=== PATIENT | female | born 1980 | race Two or more races ===

== ENCOUNTER 2021-08-23 02:15 | Inpatient (IN) | payer OTHER ==
[~2021-08-23] VITALS: Ht 160 cm; Wt 88.9 kg
[2021-08-23 04:37] LABS: BILIRUBIN NEGATIVE (NEGATIVE); BLOOD TRACE-INTACT Ery/uL (NEGATIVE); CLARITY CLEAR (CLEAR); COLOR YELLOW (YELLOW); GLUCOSE (U) 1+ mg/dL (NORMAL); HCT 38.2 % (37.0-47.0); HGB 12.9 g/dl (12.5-16.0); LEUKOCYTES NEGATIVE Leu/uL (NEGATIVE); MCH 31.4 pg (25.0-31.0); MCHC 33.8 g/dL (32.0-36.0); MCV 92.9 fL (78.0-100.0); NITRITE NEGATIVE (NEGATIVE); PROTEIN NEGATIVE (NEGATIVE); RBC 4.11 M/uL (4.20-5.40); UROBILINOGEN 0.2 mg/dL (0.2-1.0); WBC 9.5 K/uL (4.0-10.5)
[2021-08-23 04:43] LABS: AMORPHOUS URATES CRYSTALS TRACE; URINARY RBC RARE
[2021-08-23 04:55] LABS: ALBUMIN 2.3 g/dL (3.4-5.0); BILIRUBIN - TOTAL 0.2 mg/dL (0.2-1.0); CREATININE 0.75 mg/dL (0.51-0.95); GLOBULIN (CALCULATION) 4.3 g/dL; TOTAL PROTEIN 6.6 g/dL (6.4-8.2)
[2021-08-24 06:30] LABS: HCT 35.5 % (37.0-47.0); HGB 12.1 g/dl (12.5-16.0); MCH 32.3 pg (25.0-31.0); MCHC 34.1 g/dL (32.0-36.0); MCV 94.7 fL (78.0-100.0); RBC 3.75 M/uL (4.20-5.40); RDW 16.3 % (11.5-14.0)
== END 2021-08-25 12:00 | disposition home or self-care (01) | DRG 788 ==
LOC: FOB 02:15 → FOD 02:15 → FOB 03:55
PROVIDERS: ADMIT Obstetrics & Gynecology
PROC: 10D00Z1 Extraction of Products of Conception, Low, Open Approach (ICD-10-PCS; principal; 2021-08-23 10:08)
DX: O42.02 Full-term premature rupture of membranes, onset of labor within 24 hours of rupture (principal); Z37.0 Single live birth; Z3A.38 38 weeks gestation of pregnancy; Z20.822 Contact with and (suspected) exposure to COVID-19; O99.824 Streptococcus B carrier state complicating childbirth; O34.211 Maternal care for low transverse scar from previous cesarean delivery; O24.425 Gestational diabetes mellitus in childbirth, controlled by oral hypoglycemic drugs; O74.5 Spinal and epidural anesthesia-induced headache during labor and delivery; Z86.16 Personal history of COVID-19; O99.62 Diseases of the digestive system complicating childbirth; K80.20 Calculus of gallbladder without cholecystitis without obstruction; Z80.49 Family history of malignant neoplasm of other genital organs
CPT/HCPCS: 36415; 80053; 81001; 84112; 86850; 86900; 86901; J0456; J0595; J0690; J1885; J2274; J2540; J3475; J7050; J7120; J7121; U0002